=== PATIENT | female | born 1990 | race Caucasian/White ===

== ENCOUNTER 2017-02-11 08:37 | Emergency (ER) | payer OTHER ==
[2017-02-11] MEDS ORDERED: Meclizine TAB* 12.5 MG PO ONE (09:27)
[2017-02-11] MEDS ORDERED: NS 0.9% 1000 ML* 1,000 ML IV ONE (09:27)
[2017-02-11 10:08] LABS: Hematocrit 42 % (35-47); Hemoglobin 13.6 g/dl (12.0-16.0); Mean Corpuscular HGB Conc 32 g/dl (31-36); Mean Corpuscular Hemoglobin 29 pg (27-31); Mean Corpuscular Volume 89 fL (80-97); Mean Platelet Volume 10 um3 (7.4-10.4); Red Blood Count 4.73 10^6/ul (4.0-5.4); Red Cell Distribution Width 13 % (10.5-15)
[2017-02-11 10:39] LABS: Albumin 3.6 g/dL (3.2-5.2); BUN/Creatinine Ratio 21.3 (8-20); Calcium 8.9 mg/dL (8.6-10.3); EGFR African American 151.3 (>60); EGFR Non-African American 117.7 (>60); Globulin 3.3 g/dL (2-4); Magnesium 1.8 mg/dL (1.9-2.7); Potassium 3.6 mmol/L (3.5-5.0); Total Bilirubin 0.3 mg/dL (0.2-1.0); Total Protein 6.9 g/dL (6.4-8.9)
[2017-02-11 10:45] LABS: TSH (Thyroid Stimulating Horm) 1.34 mcIU/mL (0.34-5.60)
--- NOTE | 2017-02-11 10:56 | ED ---
Dizziness - HPI Summary HPI Summary: 26F presents with dizziness for a day. She admits to some nausea with it. She denies any chest pain or SOB. She denies any history of aneurysm. She states her symptoms started when she stood up in the morning. She states it is the sensation of the room spinning. She denies any sinus congestion, ear pain, or fever. She denies any headache. She has never had this before. She states the vertigo is worst with certain positions and makes her feel unsteady on her feet. She is currently on her menses. - History Of Current Complaint Chief Complaint: EDDizziness Stated Complaint: DIZZY/UNABLE TO WALK STRAIGHT Time Seen by Provider: 02/11/17 08:44 - Allergies/Home Medications Allergies/Adverse Reactions: Allergies Allergy/AdvReac Type Severity Reaction Status Date / Time No Known Allergies Allergy Verified 02/11/17 09:31 Home Medications: Home Medications Control 1 tab PO DAILY 02/11/17 [History Confirmed 02/11/17] PMH/Surg Hx/FS Hx/Imm Hx Endocrine/Hematology History: Denies: Hx Anticoagulant Therapy Cardiovascular History: Denies: Hx Hypertension Infectious Disease History: No Infectious Disease History: Denies: Traveled Outside the [place] in Last 30 Days - Family History Known Family History: Positive: Cardiac Disease, Other - no history of TIA, CVA - Social History Alcohol Use: None Substance Use Type: Reports: None Smoking Status (MU): Never Smoked Tobacco Review of Systems Negative: Fever Negative: Chest Pain Negative: Shortness Of Breath Neurological: Other - vertigo All Other Systems Reviewed And Are Negative: Yes Physical Exam Triage Information Reviewed: Yes Vital Signs On Initial Exam: Initial Vitals Temp Pulse Resp BP Pulse Ox 97.9 F 75 16 110/69 99 02/11/17 08:38 02/11/17 08:38 02/11/17 08:38 02/11/17 08:38 02/11/17 08:38 Vital Signs Reviewed: Yes Appearance: Positive: Well-Appearing Skin: Positive: Warm, Dry Head/Face: Positive: Normal Head/Face Inspection Eyes: Positive: Normal, EOMI, JULIETTE, Conjunctiva Clear ENT: Positive: Normal ENT inspection, Pharynx normal, TM bulging Respiratory/Lung Sounds: Positive: Clear to Auscultation, Breath Sounds Present Cardiovascular: Positive: Normal, RRR Abdomen Description: Positive: Nontender, Soft Bowel Sounds: Positive: Present Neurological: Positive: Sensory/Motor Intact, Alert, Oriented to Person Place, Time, CN Intact II-III, Heel to Toe, Finger to Nose. Negative: [place] Test - [place] Coma Scale Coma Scale Total: 15 Diagnostics - Vital Signs Vital Signs Temp Pulse Resp BP Pulse Ox 02/11/17 10:00 71 19 112/74 98 02/11/17 09:30 83 99 02/11/17 09:03 78 119/78 97 02/11/17 09:00 85 97 02/11/17 08:58 81 96 02/11/17 08:54 98.5 F 80 16 119/78 98 02/11/17 08:38 97.9 F 75 16 110/69 99 - Laboratory Lab Results: Lab Results 02/11/17 02/11/17 Range/Units 09:44 09:44 WBC 6.0 (3.5-10.8) 10^3/ul RBC 4.73 (4.0-5.4) 10^6/ul Hgb 13.6 (12.0-16.0) g/dl Hct 42 (35-47) % MCV 89 (80-97) fL MCH 29 (27-31) pg MCHC 32 (31-36) g/dl RDW 13 (10.5-15) % Plt Count 266 (150-450) 10^3/ul MPV 10 (7.4-10.4) um3 Neut % (Auto) 69.4 (38-83) % Lymph % (Auto) 22.7 L (25-47) % [place] % (Auto) 6.6 (1-9) % Eos % (Auto) 0.7 (0-6) % Baso % (Auto) 0.6 (0-2) % Absolute Neuts (auto) 4.2 (1.5-7.7) 10^3/ul Absolute Lymphs (auto) 1.4 (1.0-4.8) 10^3/ul Absolute Monos (auto) 0.4 (0-0.8) 10^3/ul Absolute Eos (auto) 0 (0-0.6) 10^3/ul Absolute Basos (auto) 0 (0-0.2) 10^3/ul Absolute Nucleated RBC 0.01 10^3/ul Nucleated RBC % 0.2 Sodium 139 (133-145) mmol/L Potassium 3.6 (3.5-5.0) mmol/L Chloride 108 (101-111) mmol/L Carbon Dioxide 26 (22-32) mmol/L Anion Gap 5 (2-11) mmol/L BUN 13 (6-24) mg/dL Creatinine 0.61 (0.51-0.95) mg/dL Est GFR ( Amer) 151.3 (>60) Est GFR (Non-Af Amer) 117.7 (>60) BUN/Creatinine Ratio 21.3 H (8-20) Glucose 103 H (70-100) mg/dL Calcium 8.9 (8.6-10.3) mg/dL Magnesium 1.8 L (1.9-2.7) mg/dL Total Bilirubin 0.30 (0.2-1.0) mg/dL AST 18 (13-39) U/L ALT 10 (7-52) U/L Alkaline Phosphatase 46 (34-104) U/L Total Protein 6.9 (6.4-8.9) g/dL Albumin 3.6 (3.2-5.2) g/dL Globulin 3.3 (2-4) g/dL Albumin/Globulin Ratio 1.1 (1-3) TSH 1.34 (0.34-5.60) mcIU/mL Result Diagrams: 02/11/17 09:44 02/11/17 09:44 Lab Statement: Any lab studies that have been ordered have been reviewed, and results considered in the medical decision making process. - EKG No standard instances Cardiac Rate: NL EKG Rhythm: Sinus Rhythm ST Segment: Normal Dizzy Course/Dx - Course Course Of Treatment: 26F presents with vertigo today. She woke up and stood up and felt the vertigo and felt slightly nausous. She states it is worst with positional changes. She denies any chest pain or SOB. The change She denies any sinus congestion, ear pain, fever, or headache. She has never had this before. on exam normal neuro exam. suspect BPPV but neg hallpike test. EKG and labs normal. gave meclizine and patient symptoms resolved. will prescribe meclizine and have pt follow up with primary as if continues may benefit from PT for BPPV. patient understands and agrees with plan - Diagnoses Differential Diagnosis/HQI/PQRI: Benign Paroxysmal Positional Vertigo, Hypovolemia, Metabolic Abnormality Provider Diagnoses: Vertigo Discharge - Discharge Plan Condition: Good Disposition: HOME Prescriptions: Meclizine TAB* [Antivert 12.5 TAB*] 12.5 mg PO Q8H PRN #15 tab PRN Reason: Vertigo Patient Education Materials: Vertigo (ED) Referrals: Hillary Dave NP [Primary Care Provider] - Additional Instructions: Drink plenty of fluids and stand up slowly Take meclizine every 8 hours as need for vertigo Follow up with primary within 5 days Return to ED if develop any new or worsening symptoms
[2017-02-11 11:42] VITALS: BP 116/67
== END 2017-02-11 11:41 | disposition home or self-care (01) ==
LOC: ED 08:37
DX: R42 Dizziness and giddiness (principal); R11.0 Nausea
CPT/HCPCS: 36415; 80053; 83735; 84443; 85025; 93005; 99282; A9270-GY

== ENCOUNTER 2020-04-16 05:42 | Inpatient (IN) ==
[2020-04-16 07:14] LABS: Urine Benzodiazepine Screen None Detected (None Detect); Urine Opiates Screen None Detected (None Detect)
[2020-04-16] MEDS ORDERED: fentaNYL 100 mcg/2 ml 50 MCG/ML VIAL ONE (07:36)
[2020-04-16] MEDS ORDERED: fentaNYL 250 mcg/5 ml 50 MCG/ML 5 ml VIAL (250 MCG) ONE (07:36)
[2020-04-16] MEDS ORDERED: Morphine PF AMP (0.5MG/ML) 5 MG/10 ML AMP ONE (07:36)
[2020-04-16] MEDS ORDERED: Ondansetron 4 mg VIAL 2 MG/ML 2 ml VIAL ONE (07:42)
[2020-04-16] MEDS ORDERED: Sodium Citrate/Citric Acid LIQ 15 ML UDC ONE (07:43)
[2020-04-16] MEDS ORDERED: ceFAZolin 2 GM PREMIX 2 GM/50 ML BAG IVPB ONE (08:00)
[2020-04-16] MEDS ORDERED: Oxytocin 10 UNITS/ML 1 ML VIAL ONE ×2 (08:19→08:56)
[2020-04-16] MEDS ORDERED: Naloxone 0.4 mg VIAL 0.4 mg/ml 1 ml VIAL IV PRN ×2 (08:28→08:30)
[2020-04-16] MEDS ORDERED: Metoclopramide 5 MG/ML VIAL (10 mg) IV PRN (08:28)
[2020-04-16] MEDS ORDERED: Naloxone 4 mg VIAL (10 ml) 2 MG in NS 0.9% 250 ml 250 ML IV PRN (08:30)
[2020-04-16] MEDS ORDERED: oxyCODONE/Acetamin 5/325 mg TAB PO PRN (08:30)
[2020-04-16] MEDS ORDERED: Witch Hazel PAD JAR TOPICAL PRN (09:20)
[2020-04-16] MEDS ORDERED: Dibucaine 1% OINT 28.35 GM TUBE PR PRN (09:20)
[2020-04-16] MEDS ORDERED: Lactated Ringers 1000 ml BAG 1,000 ML IV SCH (10:00)
[2020-04-17 07:36] LABS: ABS Monocytes 0.7 10^3/ul (0-0.8); ABS Neutrophils 8.4 10^3/ul (1.5-7.7); Eosinophil % 0.2 %; Hematocrit 30 % (35-47); Hemoglobin 10.7 g/dL (12.0-16.0); Lymphocyte % 17.6 %; Mean Corpuscular HGB Conc 35 g/dL (31-36); Mean Corpuscular Hemoglobin 33 pg (27-31); Mean Corpuscular Volume 93 fL (80-97); Mean Platelet Volume 12.2 fL (7.4-10.4); Platelet Count 125 10^3/uL (150-450); Red Blood Count 3.27 10^6 /uL (3.70-4.87); Red Cell Distribution Width 13 % (10-15); White Blood Count 11.1 10^3/uL (3.5-10.8)
[2020-04-18 11:46] VITALS: BP 122/71
== END 2020-04-18 16:40 | disposition home or self-care (01) | DRG 540 ==
LOC: MCHOB 05:42
PROVIDERS: ADMIT Obstetrics & Gynecology; ATTEND Obstetrics & Gynecology

== ENCOUNTER 2024-02-29 07:13 | Inpatient (IN) ==
[2024-02-29] MEDS: Sodium Citrate/Citric Acid LIQ 15 ML UDC PO ONE (08:21)
[2024-02-29] MEDS: Buffered Lidocaine 1% SYRIN 1 ml INTRADERM ONE (08:23)
[2024-02-29] MEDS: Lactated Ringers 1000 ml BAG 1,000 ML IV ONE (08:24)
[2024-02-29] MEDS ORDERED: Oxytocin 10 UNITS/ML 1 ML VIAL ONE ×2 (08:25→09:13)
[2024-02-29] MEDS ORDERED: Morphine PF AMP (0.5MG/ML) 5 MG/10 ML AMP ONE (08:25)
[2024-02-29] MEDS ORDERED: Ondansetron 4 mg VIAL 2 MG/ML 2 ml VIAL ONE (08:25)
[2024-02-29] MEDS ORDERED: Dexamethasone IV 4 MG/ML VIAL 1 ml VIAL ONE (08:25)
[2024-02-29 08:29] LABS: ABS Lymphocytes 1.9 10^3/uL (1.0-4.8); ABS Monocytes 0.6 10^3/uL (0.0-0.9); ABS Neutrophils 6.1 10^3/uL (1.5-7.6); ABS Nucleated RBC 0.01 10^3/ul; Eosinophil % 0.4 %; Mean Corpuscular Hemoglobin 31.1 pg (27-33); Mean Corpuscular Hgb Conc 34.2 g/dL (31-36); Mean Corpuscular Volume 90.9 fL (80-97); Mean Platelet Volume 12.5 fL (7.5-11.2); Nucleated Red Blood Cells % 0.1 %/100WBC (0.0-0.8); Platelet Count 153 10^3/uL (150-450); Red Blood Count 3.85 10^6/uL (3.63-4.92); Red Cell Distribution Width 12.8 % (12-17); White Blood Count 8.6 10^3/uL (3.8-11.8)
[2024-02-29] MEDS: ceFOXitin 2 GM IVPREMIX 2 GM/50 ML BAG IVPB ONE (08:45)
[2024-02-29] MEDS ORDERED: Naloxone 0.4 mg VIAL 0.4 mg/ml 1 ml VIAL IV PUSH PRN ×2 (09:44→11:07)
[2024-02-29] MEDS ORDERED: Ondansetron 4 mg VIAL 2 MG/ML 2 ml VIAL IV PRN ×2 (09:44→11:07)
[2024-02-29] MEDS ORDERED: Metoclopramide 5 MG/ML VIAL (10 mg) IV PRN ×2 (09:44→11:07)
[2024-02-29] MEDS: Oxytocin in LR 20,000 MILLI.UNIT/1,000 ML BAG IV ONE (10:30)
[2024-02-29] MEDS: Lactated Ringers 1000 ml BAG 1,000 ML IV SCH (10:39)
[2024-02-29] MEDS: Carboprost Tromethamine 250 mcg 1 ml VIAL ONE (10:43)
[2024-02-29] MEDS: Methylergonovine 0.2 mg AMPULE 1 ml AMP ONE (10:43)
[2024-02-29 11:02] LABS: Urine Appearance Clear; Urine Bilirubin Negative (Negative); Urine Blood Trace (Negative); Urine Color Yellow; Urine Glucose Negative (Negative); Urine Ketones Negative (Negative); Urine Nitrite Negative (Negative); Urine Protein 1+ (>=30 mg/dL) (Negative); Urine Specific Gravity 1.023 (1.002-1.030); Urine Urobilinogen Negative (Negative); Urine pH 6.5 (5.0-8.0)
[2024-02-29] MEDS ORDERED: Acetaminophen IV 1 GM/100ML 1,000 MG/100 ML BAG IV PRN (11:07)
[2024-02-29 11:14] LABS: Urine Bacteria Absent /HPF (Absent); Urine Red Blood Cell 3+(>10/hpf) /HPF (0-Trace); Urine Squamous Epithelial Cell Present /HPF (Absent); Urine White Blood Cell Trace(0-5/hpf) /HPF (0-Trace)
[2024-02-29 11:35] LABS: Urine Benzodiazepine Screen None Detected (None Detect); Urine Cannabinoids Screen None Detected (None Detect); Urine Opiates Screen None Detected (None Detect)
[2024-02-29] MEDS: Acetaminophen IV 1 GM/100ML 1,000 MG/100 ML BAG IV PRN (12:48)
[2024-02-29] MEDS ORDERED: Glycerin ADULT 2.4 gm SUPP PR PRN (14:06)
[2024-02-29] MEDS ORDERED: Dibucaine 1% OINT 28.35 GM TUBE PR PRN (14:06)
[2024-02-29] MEDS ORDERED: Witch Hazel PAD JAR TOPICAL PRN (14:06)
[2024-02-29] MEDS ORDERED: Lactated Ringers 1000 ml BAG 1,000 ML IV SCH (15:00)
[2024-02-29] MEDS: Oxytocin in LR 20,000 MILLI.UNIT/1,000 ML BAG IV SCH (20:01)
[2024-03-01 08:15] LABS: ABS Lymphocytes 2.1 10^3/uL (1.0-4.8); ABS Monocytes 0.8 10^3/uL (0.0-0.9); ABS Neutrophils 6.1 10^3/uL (1.5-7.6); Eosinophil % 0.2 %; Hematocrit 29.5 % (35-45); Hemoglobin 10.1 g/dL (11.5-14.3); Large Platelets Present; Mean Corpuscular Hemoglobin 31.4 pg (27-33); Mean Corpuscular Hgb Conc 34.4 g/dL (31-36); Mean Corpuscular Volume 91.4 fL (80-97); Mean Platelet Volume 12.5 fL (7.5-11.2); Nucleated Red Blood Cells % 0.1 %/100WBC (0.0-0.8); Platelet Count 136 10^3/uL (150-450); Red Blood Count 3.23 10^6/uL (3.63-4.92); Red Cell Distribution Width 13.3 % (12-17)
[2024-03-02] MEDS: Tetan/Diph/Pertus SYR(Tdap) 0.5 ML SYR(BOOSTRIX) use SYR contains LATEX IM ONE (11:57)
[2024-03-02 12:20] VITALS: BP 113/67
== END 2024-03-02 13:27 | disposition home or self-care (01) | DRG 540 ==
LOC: MCHOB 07:13 → EDSTATUS 11:00 → MCHOB 12:02
PROVIDERS: ADMIT Obstetrics & Gynecology; ATTEND Obstetrics & Gynecology